=== PATIENT | female | born 1975 | race Caucasian/White ===

== ENCOUNTER 2017-10-30 15:37 | Emergency (ER) | payer OTHER ==
[2017-10-30] MEDS ORDERED: Famotidine 20 MG/2 ML SDV IVPUSH ONE (16:24)
[2017-10-30] MEDS ORDERED: methylPREDNISolone Sodium Succinate 125 MG/2 ML SDV IVPUSH ONE (16:24)
--- NOTE | 2017-10-30 16:26 | EDM.PDOC ---
ED HPI GENERAL MEDICAL PROBLEM - General Chief Complaint: Eye Problems Stated Complaint: [facility] Time Seen by Provider: 10/30/17 16:03 Source of Information: Reports: Patient History Limitations: Reports: No Limitations - History of Present Illness INITIAL COMMENTS - FREE TEXT/NARRATIVE: 41-year-old female arrives via [facility] ambulance service for evaluation and treatment of swelling to the left eye. Patient reports she is visiting [place] from [place]. Reports that she went out for a bike ride on the [facility] [employer]. She states that she felt that her left eye felt different. She lifted up her glasses appreciated significant swelling to the left orbit. She reports that her right ear is been itchy. She has some minor discomfort with extraocular movement. No fevers, chills, nausea, vomiting or headaches. She's never had anything like this before. She did take an [id number] Benadryl prior to being picked up by ambulance service and received 50mg IV Benadryl. She states that is not painful but is very uncomfortable. No hives or shortness of breath. She states that she did not apply any makeup or sunscreens today. Treatments [employer]: Reports: Other (see below) Other Treatments [employer]: Benadryl 75 mg - Related Data Allergies Allergy/AdvReac Type Severity Reaction Status Date / Time kiwi Allergy Swollen Uncoded 10/30/17 15:46 Tongue Home Meds: Home Meds Erythromycin Base [Erythromycin 0.5% Ophth Oint] 1 applic EYELF BID #1 tube 06/14 [Rx] predniSONE [Prednisone] 40 mg PO DAILY #10 tablet 10/30/17 [Rx] ED ROS GENERAL - Review of Systems Review Of Systems: See Below Constitutional: Denies: Fever, Chills HEENT: Reports: Vision Change (decreased vision to the left eye due to orbital swelling), Other (left eye increased tearing, no prurlent material, swelling the left orbit, minor discomfort with EOM). Denies: Ear Pain (right ear pruritus) Respiratory: Denies: Shortness of Breath Cardiovascular: Denies: Chest Pain GI/Abdominal: Denies: Vomiting Skin: Denies: Rash Neurological: Denies: Headache ED EXAM GENERAL W FULL EYE - Physical Exam Exam: See Below Exam Limited By: No Limitations General Appearance: Alert, WD/WN, No Apparent Distress Eye Exam: Left Eye: Periorbital Changes (swelling to the left orbit), Bilateral Eye: EOMI (minimal discomfort with EOM), Normal Inspection, PERRL Eyelids: Left: Edema Conjunctiva & Sclera: Bilateral: Normal Appearance Cornea Exam: Bilateral: Normal Appearance Extraocular Movements: Bilateral: Intact Pupils: Normal Accommodation Pupillary Reaction: Bilateral: Brisk Anterior Chamber: Bilateral: Normal Appearance Ears: Normal External Exam, Normal Canal, Hearing Grossly Normal, Normal TMs Nose: Normal Inspection Throat/Mouth: Normal Inspection, Normal Lips, Normal Voice, No Airway Compromise Neck: Normal Inspection Respiratory/Chest: No Respiratory Distress, Lungs Clear, Normal Breath Sounds Cardiovascular: Normal Peripheral Pulses, Regular Rate, Rhythm, No Murmur Extremities: Normal Inspection Neurological: Alert, Oriented, Normal Cognition Psychiatric: Normal Affect, Normal Mood Skin Exam: Warm, Dry, Normal Color Course - Vital Signs Last Recorded V/S: Last Vital Signs Temp 98.8 F 10/30/17 15:46 Pulse 94 10/30/17 15:46 Resp 16 10/30/17 15:46 BP 125/91 H 10/30/17 15:46 Pulse Ox 98 10/30/17 15:46 - Orders/Labs/Meds Labs: Laboratory Tests 10/30/17 10/30/17 Range/Units 17:50 17:50 WBC 10.96 H (3.98-10.04) K/mm3 RBC 4.09 (3.98-5.22) M/mm3 Hgb 12.8 (11.2-15.7) gm/L Hct 37.9 (34.1-44.9) % MCV 92.7 (79.4-94.8) fl MCH 31.3 (25.6-32.2) pg MCHC 33.8 (32.2-35.5) g/dl RDW Std Deviation 40.6 (36.4-46.3) fL Plt Count 410 H (182-369) K/mm3 MPV 10.2 (9.4-12.3) fl Neut % (Auto) 76.1 H (34.0-71.1) % Lymph % (Auto) 18.1 L (19.3-51.7) % [place] % (Auto) 4.5 L (4.7-12.5) % Eos % (Auto) 1.0 (0.7-5.8) Baso % (Auto) 0.2 (0.1-1.2) % Neut # (Auto) 8.35 H (1.56-6.13) K/mm3 Lymph # (Auto) 1.98 (1.18-3.74) K/mm3 [place] # (Auto) 0.49 H (0.24-0.36) K/mm3 Eos # (Auto) 0.11 (0.04-0.36) K/mm3 Baso # (Auto) 0.02 (0.01-0.08) K/mm3 Sodium 141 (136-145) mEq/L Potassium 3.9 (3.5-5.1) mEq/L Chloride 108 H (98-107) mEq/L Carbon Dioxide 23 (21-32) mEq/L Anion Gap 13.9 (5-15) BUN 15 (7-18) mg/dL Creatinine 1.0 (0.55-1.02) mg/dL Est Cr Clr Drug Dosing 55.30 mL/min Estimated GFR (MDRD) > 60 (>60) mL/min BUN/Creatinine Ratio 15.0 (14-18) Glucose 101 (74-106) mg/dL Calcium 8.5 (8.5-10.1) mg/dL Total Bilirubin 0.6 (0.2-1.0) mg/dL AST 19 (15-37) U/L ALT 32 (14-59) U/L Alkaline Phosphatase 42 L (46-116) U/L C-Reactive Protein < 0.2 (<1.0) mg/dL Total Protein 7.4 (6.4-8.2) g/dl Albumin 3.8 (3.4-5.0) g/dl Globulin 3.6 gm/dL Albumin/Globulin Ratio 1.1 (1-2) Meds: Medications Discontinued Medications Generic Name Dose Route Start Last Admin Trade Name Freq PRN Reason Stop Dose Admin Famotidine 20 mg 10/30/17 16:24 10/30/17 16:49 Pepcid IVPUSH 10/30/17 16:25 20 mg ONETIME ONE Administration Iopamidol 50 ml 10/30/17 18:14 10/30/17 18:30 Isovue-300 (61%) IVPUSH 10/30/17 18:15 50 ml ONETIME ONE Administration Methylprednisolone Sodium Succinate 125 mg 10/30/17 16:24 10/30/17 16:45 Solu-Medrol IVPUSH 10/30/17 16:25 125 mg ONETIME ONE Administration Sodium Chloride 10 ml 10/30/17 18:14 10/30/17 18:30 Saline Flush FLUSH 10 ml ONETIME PRN Administration Keep Vein Open - Radiology Interpretation Free Text/Narrative:: CT facial bones Technique: Multiple axial sections through the facial bones were obtained. Intravenous contrast was not utilized. Findings: Soft tissue swelling is noted within the left cheek and within the left periorbital region. No fluid collections are seen to indicate discrete abscess at this time. Right and left globes are symmetric in size. No retrobulbar abnormality is seen. Extraocular muscles and optic nerves appear symmetric. Paranasal sinuses appear clear. Ostiomeatal complex is clear. Joint space narrowing is noted within both temporomandibular joints. Impression: 1. Degenerative change within the temporomandibular joints on both sides. 2. Soft tissue swelling within the left cheek and left periorbital region. 3. No additional abnormality is identified on CT study of the facial bones. - Re-Assessments/Exams Free Text/Narrative Re-Assessment/Exam: 10/30/17 17:50 Checked on the patient. Minimal improvement with the steroid and pepcid. She has received 50mg IV benadryl [employer]. Patient is now reporting more pain with EOM. Decided to CT due to lack of progress with allergy treatment and pain with EOM. Still likely allergic reaction, will rule out orbital cellulitis. 10/30/17 19:43 Reviewed the labs and imaging with the patient. Her eye is improving. Will put on prednisone and treat for allergic reaction. Discharge instructions as documented. Departure - Departure Time of Disposition: 19:44 Disposition: Home, Self-Care 01 Condition: Fair Clinical Impression: Orbital swelling, Allergic reaction - Discharge Information *PRESCRIPTION DRUG MONITORING PROGRAM REVIEWED*: No *COPY OF PRESCRIPTION DRUG MONITORING REPORT IN PATIENT CLAU: No Prescriptions: Erythromycin Base [Erythromycin 0.5% Ophth Oint] 1 applic EYELF BID #1 tube predniSONE [Prednisone] 40 mg PO DAILY #10 tablet Referrals: PCP,None [Primary Care Provider] - Forms: ED Department Discharge Additional Instructions: Take the prednisone as prescribed. 40 mg or 2 tabs by mouth daily for 5 days. Start this medication tomorrow as you were given steroids in the ED tonight. Continue taking an antihistamine. may take Benadryl every 6 hours. For Something less sedating recommend Claritin, Zyrtec or Adele. Take these per package directions. Make sure you are drinking plenty of fluids. may continue to apply a cool compress to the eye as tolerated. Erythromycin ointment, 1 cm ribbon to the lower lid 3 times a day. Start this medication if you develope irritation to the eye or crusting to the lashes. Follow-up with your primary care provider when you return to [place] if your symptoms have not improved much within the next 5-7 days. Please return to the ER if your symptoms change or worsen.
[2017-10-30] MEDS ORDERED: Iopamidol 612 MG/ML 50 ML SDV IVPUSH ONE (18:14)
[2017-10-30] MEDS ORDERED: Sodium Chloride 0.9% 10 ML Syringe FLUSH PRN (18:14)
--- NOTE | 2017-10-30 18:57 | CT ---
CT facial bones Technique: Multiple axial sections through the facial bones were obtained. Intravenous contrast was not utilized. Findings: Soft tissue swelling is noted within the left cheek and within the left periorbital region. No fluid collections are seen to indicate discrete abscess at this time. Right and left globes are symmetric in size. No retrobulbar abnormality is seen. Extraocular muscles and optic nerves appear symmetric. Paranasal sinuses appear clear. Ostiomeatal complex is clear. Joint space narrowing is noted within both temporomandibular joints. Impression: 1. Degenerative change within the temporomandibular joints on both sides. 2. Soft tissue swelling within the left cheek and left periorbital region. 3. No additional abnormality is identified on CT study of the facial bones. Diagnostic code #3
== END 2017-10-30 21:05 | disposition home or self-care (01) ==
LOC: JD.ED 15:37
DX: T78.40XA Allergy, unspecified, initial encounter (principal); H02.846 Edema of left eye, unspecified eyelid
CPT/HCPCS: 36415; 70487; 80053; 85025; 86140; 96374; 96375; 99285; J2930; J3490; J7050; Q9967